=== PATIENT | male | born 1990 | race Caucasian/White ===

== ENCOUNTER → 2018-07-13 | Outpatient (CLI) | payer OTHER ==
[2018-07-13 13:32] LABS: ALT 58 U/L (21-72); AST 39 U/L (17-59); Blood Urea Nitrogen 14 mg/dL (9-20); Uric Acid 6.2 mg/dL (3.5-8.5)
== END | disposition home or self-care (01) ==
LOC: LABWHC1 12:09
PROVIDERS: ATTEND Podiatrist
DX: M10.9 Gout, unspecified (principal)
CPT/HCPCS: 36415; 82565; 84450; 84460; 84520; 84550